=== PATIENT | male | born 1955 | race Caucasian/White ===

== ENCOUNTER 2024-10-16 20:48 | Emergency (ER) | payer MEDICARE, OTHER ==
[2024-10-16] MEDS ORDERED: Sodium Chloride 0.9% 10 ML Syringe FLUSH PRN (22:50)
[2024-10-16] MEDS ORDERED: Sodium Chloride 0.9% 10 ML SDV IV PRN (22:50)
[2024-10-17 00:17] LABS: HEMATOCRIT 37.5 % (42.0-52.0); HEMOGLOBIN 13.1 gm/dl (14.0-18.0); MEAN CORPUSCULAR HEMOGLOBIN 34.7 pg (28.0-32.0); MEAN CORPUSCULAR HGB CONC 34.9 g/dl (32.0-36.0); MEAN CORPUSCULAR VOLUME 99.2 fl (83.0-99.0); MEAN PLATELET VOLUME 11.8 fl (9.4-12.4); NRBC ABSOLUTE 0.03 (0.00-0.02); NRBC PERCENT 0.5 % (0.0-0.2); PLATELET COUNT,PLT 88 K/mm3 (150-400); RED BLOOD CELL COUNT 3.78 M/mm3 (4.52-5.90); WHITE BLOOD CELL COUNT,WBC 6.62 K/mm3 (3.9-11.3)
[2024-10-17 00:27] LABS: LACTIC ACID 1.2 mmol/L (0.4-2.0)
[2024-10-17 00:35] LABS: A/G RATIO 1.2 (1-2); ALBUMIN 3.6 g/dl (3.4-5.0); ANION GAP 13.6 (5-15); BILIRUBIN TOTAL 0.5 mg/dL (0.2-1.0); C-REACTIVE PROTEIN 0.85 mg/dL (<0.30); CALCIUM 9.1 mg/dL (8.5-10.1); CREATININE 1.2 mg/dL (0.7-1.3); EST CRCL DRUG DOSING (CG) 60.83 mL/min; POTASSIUM,K 3.6 mEq/L (3.5-5.1); PROTEIN TOTAL,TP 6.7 g/dl (6.4-8.2); TSH 3.952 uIU/mL (0.358-3.74)
[2024-10-17 00:40] LABS: ANISOCYTOSIS 2+ MODERATE; BAND PERCENT MAN 11 % (0-10); BASOPHILS PERCENT MAN 2 (0.2-1.2); EOSINOPHILS PERCENT MAN 0 % (0.8-7.0); LYMPHOCYTES % ATYPICAL MANUAL 0 %; LYMPHOCYTES PERCENT MAN 14 % (20-40); METAMYELOCYTE PERCENT MAN 5; MONOCYTES PERCENT MAN 13 % (2-10); MYELOCYTE PERCENT MAN 6; POLYCHROMASIA 2+ MODERATE
[2024-10-17 00:41] LABS: TOXIC GRANULATION 1+ SLIGHT
[2024-10-17 00:42] LABS: PLATELET COUNT ESTIMATE DECREASED
[2024-10-17 00:47] LABS: T4 FREE 1.02 ng/dL (0.76-1.46)
[2024-10-17] MEDS: Levofloxacin 750 MG Tab PO SCH (01:09)
[2024-10-17] MEDS: Furosemide 40 MG/4 ML VIAL IVPUSH ONE (01:09)
[2024-10-17 01:22] VITALS: BP 149/72; PULSE 95
== END 2024-10-17 01:22 | disposition home or self-care (01) ==
LOC: JD.ED 20:48
DX: L03.116 Cellulitis of left lower limb (principal); D84.821 Immunodeficiency due to drugs; Z88.0 Allergy status to penicillin; Z88.8 Allergy status to other drugs, medicaments and biological substances; Z79.82 Long term (current) use of aspirin; Z79.890 Hormone replacement therapy; Z79.899 Other long term (current) drug therapy
CPT/HCPCS: 36415; 71046; 80053; 83605; 83880; 84439; 84443; 85007; 85027; 85379; 86140; 93970; 96374; 99284; A9270; J1940